=== PATIENT | female | born 1970 ===

== ENCOUNTER 2017-09-29 08:15 | Emergency (ER) | payer OTHER ==
[2017-09-29 08:23] VITALS: BMI 30.2
--- NOTE | 2017-09-29 08:56 | ED PDOC ---
Upper Extremity Pain/Injury Time Seen by Provider: 09/29/17 08:42 Chief Complaint (Nursing): Upper Extremity Problem/Injury Chief Complaint (Provider): Upper extremity problem History Per: Patient History/Exam Limitations: no limitations Onset/Duration Of Symptoms: Days (x2) Current Symptoms Are (Timing): Still Present Quality: "Pain" Exacerbating Factor(s): Other (turning side to side. ) Additional Complaint(s): Kathi Guidry is a 47 year old female, with a past medical history of seizure disorders, who presents to the emergency department complaining of neck pain onset for x2 days. Patient states pain initially started on left side radiating to left shoulder but it's now on both sides. Pain is worst with turning side to side, predominantly on left side. She denies any weakness, paresthesias, or trauma. No further medical complaints. PMD: None provided. Past Medical History Reviewed: Historical Data, Nursing Documentation, Vital Signs Vital Signs: Last Vital Signs Temp 96 F L 09/29/17 08:21 Pulse 127 H 09/29/17 08:21 Resp BP 143/92 H 09/29/17 08:21 Pulse Ox 100 09/29/17 08:21 - Medical History PMH: No Chronic Diseases - Surgical History Surgical History: No Surg Hx - Family History Family History: States: Unknown Family Hx - Home Medications Home Medications: Ambulatory Orders Medication Instructions Recorded Naproxen [Naprosyn] 500 mg PO Q12H #20 tab 09/29/17 diaZEpam [Valium] 5 mg PO Q8 #6 tab 09/29/17 - Allergies Allergies/Adverse Reactions: Allergies Allergy/AdvReac Type Severity Reaction Status Date / Time No Known Allergies Allergy Verified 10/09/15 12:42 Review of Systems ROS Statement: Except As Marked, All Systems Reviewed And Found Negative Constitutional: Negative for: Other (trauma) Musculoskeletal: Positive for: Neck Pain (radiating to shoulders. Worst with turning. ), Shoulder Pain (b/l) Neurological: Negative for: Weakness, Other (paresthesias) Physical Exam - Reviewed Nursing Documentation Reviewed: Yes Vital Signs Reviewed: Yes - Physical Exam Appears: Positive for: Non-toxic Head Exam: Positive for: ATRAUMATIC, NORMAL INSPECTION, NORMOCEPHALIC Skin: Positive for: Normal Color, Warm, Dry Eye Exam: Positive for: Normal appearance, EOMI, PERRL Neck: Positive for: Supple. Negative for: Normal (Paracervical spasm and muscle tenderness b/l. No midline spinal tenderness) Cardiovascular/Chest: Positive for: Regular Rate, Rhythm. Negative for: Murmur Respiratory: Positive for: Normal Breath Sounds. Negative for: Respiratory Distress Gastrointestinal/Abdominal: Positive for: Normal Exam, Soft. Negative for: Tenderness Back: Positive for: Normal Inspection. Negative for: L CVA Tenderness, R CVA Tenderness, Vertebral Tenderness Extremity: Positive for: Normal ROM. Negative for: Deformity, Swelling Neurologic/Psych: Positive for: Alert, Oriented (x3). Negative for: Motor/ Sensory Deficits, Other (no focal deficits.) - ECG O2 Sat by Pulse Oximetry: 100 (RA) Pulse Ox Interpretation: Normal Medical Decision Making Medical Decision Making: Initial Plan: --Flexeril 10 mg PO --Naprosyn tab 500 mg PO --Cervical spine AP & LATERAL [RAD] --Reevaluation Scribe Attestation: Documented by Shamar Casey, acting as a scribe for Urbano Thapa MD Provider Scribe Attestation: All medical record entries made by the Scribe were at my direction and personally dictated by me. I have reviewed the chart and agree that the record accurately reflects my personal performance of the history, physical exam, medical decision making, and the department course for this patient. I have also personally directed, reviewed, and agree with the discharge instructions and disposition. Disposition - Clinical Impression Clinical Impression: Radiculopathy, cervical - Patient ED Disposition Is Patient to be Admitted: No Counseled Patient/Family Regarding: Studies Performed, Diagnosis, Need For Followup, Rx Given - Disposition Referrals: [facility] [Outside] Disposition: Routine/Home Disposition Time: 10:02 Condition: FAIR Prescriptions: diaZEpam [Valium] 5 mg PO Q8 #6 tab Naproxen [Naprosyn] 500 mg PO Q12H #20 tab Instructions: Radiculopathy Forms: [facility] (Albanian)
[2017-09-29] MEDS ORDERED: Naproxen 500 MG TAB PO ONE (08:58)
[2017-09-29] MEDS ORDERED: Naproxen 500 MG TAB PO STA (09:14)
--- NOTE | 2017-09-29 09:42 | RAD ---
PROCEDURE: Cervical Spine Radiographs. HISTORY: Pain. COMPARISON: None. FINDINGS: BONES: Alignment maintained. No fracture. Dens Intact. DISC SPACES: Normal. SOFT TISSUES: Normal. No prevertebral soft tissue swelling. OTHER FINDINGS: None. IMPRESSION: Normal cervical spine radiographs
[2017-09-29 10:27] VITALS: BP 128/78; PULSE 78; RESP 18; TEMP 97; O2SAT 98
== END 2017-09-29 10:27 | disposition home or self-care (01) ==
LOC: H.ER 08:15
DX: M54.12 Radiculopathy, cervical region (principal)